=== PATIENT | female | born 1985 | race Caucasian/White ===

== ENCOUNTER 2023-06-05 19:10 | Emergency (ER) | payer BC, SELFPAY ==
[2023-06-05 19:14] VITALS: BP 122/76; PULSE 87; RESP 16; TEMP 36.7; O2SAT 98; BMI 26.1
--- NOTE | 2023-06-05 19:21 | PC.NURSE ---
patient with increased difficulty hearing in right ear. She tried at home ear wax removal treatments and was able to get some wax out, but is still having some difficulty hearing and discomfort in the ear canal. Ear canal is red and irritated with some dried blood, tympanic membrane is visible.
--- NOTE | 2023-06-05 19:30 | ED.EAR1 ---
HPI - Ear Problem General Chief complaint: Ear Stated complaint: EAR PAIN Time Seen by Provider: 06/05/23 19:30 Mode of arrival: walk-in Limitations: no limitations History of Present Illness HPI Narrative: ear pain. use candle to help remove wax from ear. then used Q tip. now has pain and pressure of the ear. no headache or dizziness MD Complaint: Reports ear pain Related Data Home Medications Medication Instructions Recorded Confirmed No Known Home Medications 06/05/23 06/05/23 Allergies Allergy/AdvReac Type Severity Reaction Status Date / Time No Known Drug Allergies Allergy Verified 06/05/23 19:14 Review of Systems ROS Status of ROS 10 or more systems reviewed and unremarkable except as noted in history and below [facility] Social History Smoking status: Former smoker Exam Constitutional Vital Signs, click to edit/add: Last Vital Signs Temp 98.1 F 06/05/23 19:14 Pulse 87 06/05/23 19:14 Resp 16 06/05/23 19:14 BP 122/76 06/05/23 19:14 Pulse Ox 98 06/05/23 19:14 O2 Del Method Room Air 06/05/23 19:14 Common normals: no apparent distress, oriented x3, no limitations, healthy appearing, alert and well nourished [facility] Common normals: normocephalic and head/scalp atraumatic Other: right TM red. looks bruised Eye Common normals: EOMs intact bilaterally and conjunctivae normal Respiratory Common normals: normal respiratory effort, no retractions, no use of accessory muscles and clear to auscultation bilaterally Cardio Common normals: regular rate, regular rhythm, S1 normal heart sound and S2 normal heart sound Extremity Common normals: normal to inspection and full ROM Neuro Common normals: oriented x3, CN's II-XII intact bilaterally, moves all extremities and no focal motor deficits Psych Appearance: grossly normal Course Vital Signs Vital signs: Vital Signs Temperature 98.1 F 06/05/23 19:14 Pulse Rate 87 06/05/23 19:14 Respiratory Rate 16 06/05/23 19:14 Blood Pressure 122/76 06/05/23 19:14 Pulse Oximetry 98 06/05/23 19:14 Oxygen Delivery Method Room Air 06/05/23 19:14 Temperature 98.1 F 06/05/23 19:14 Pulse Rate 87 06/05/23 19:14 Respiratory Rate 16 06/05/23 19:14 Blood Pressure 122/76 06/05/23 19:14 Pulse Oximetry 98 06/05/23 19:14 Oxygen Delivery Method Room Air 06/05/23 19:14 Medical Decision Making MDM Narrative Medical decision making narrative: presents with right ear pain. right TM red and looks bruised. Patient without headache or dizziness. Plan augmentin and followup with her family doctor Discharge Plan Discharge Chief Complaint: Ear Clinical Impression: Otitis media Patient Disposition: Home, Self-Care Prescriptions / Home Meds: No Action No Known Home Medications Instructions: Ear Infection (ED) Stand Alone Forms: Portal Instructions Referrals: Physician,Non-Staff, MD [Primary Care Provider] - 1 week
[2023-06-05] MEDS: AMOXICILLIN/POTASSIUM CLAV 1 TAB TABLET PO (19:47)
== END 2023-06-05 19:52 | disposition home or self-care (01) ==
PROVIDERS: Emergency Provider Internal Medicine
DX: H66.91 Otitis media, unspecified, right ear (principal); Z87.891 Personal history of nicotine dependence
CPT/HCPCS: 99283